=== PATIENT | male | born 1990 | race African-American/Black ===

== ENCOUNTER 2024-02-15 20:50 | Emergency (ER) | payer SELFPAY ==
[2024-02-15 22:00] LABS: Influenza A by NAA Not Detected (NotDetected); Influenza B by NAA Not Detected (NotDetected); SARS-CoV-2 NAA Rapid Test Not Detected (NotDetected)
== END 2024-02-15 22:27 | disposition home or self-care (01) ==
LOC: MADERS 20:50
DX: B34.9 Viral infection, unspecified (principal)
CPT/HCPCS: 99283